=== PATIENT | male | born 1980 | race Two or more races ===

== ENCOUNTER → 2017-03-11 | Outpatient (CLI) | payer OTHER ==
--- NOTE | 2017-03-11 10:22 | RAD ---
Indication: Right hand pain and injury. Time of exam 10:17 AM 3 views of the right hand were obtained. The carpus is unremarkable. There appears to be an old fracture deformity of the fifth metacarpal. No acute fracture is seen. The metacarpals and phalanges are intact. Impression: No acute bony abnormality is detected.
== END | disposition home or self-care (01) ==
LOC: DXRADRC 10:10
PROVIDERS: ATTEND General Practice
DX: M79.641 Pain in right hand (principal); W23.0XXA Caught, crushed, jammed, or pinched between moving objects, initial encounter
CPT/HCPCS: 73130

== ENCOUNTER → 2017-03-24 | Outpatient (CLI) | payer OTHER ==
--- NOTE | 2017-03-24 16:28 | RAD ---
Indication right hand pain and swelling secondary to an injury 2 weeks ago particularly third and fourth digits. AP oblique and lateral views of the right hand were obtained. No acute bony finding is seen. There is deformity involving the fifth metacarpal which would be compatible with an old, healed, injury. IMPRESSION: No acute bony finding
== END | disposition home or self-care (01) ==
LOC: DXRADRC 15:53
PROVIDERS: ATTEND General Practice
DX: S69.91XD Unspecified injury of right wrist, hand and finger(s), subsequent encounter (principal); X58.XXXD Exposure to other specified factors, subsequent encounter
CPT/HCPCS: 73130